=== PATIENT | male | born 1945 | race African-American/Black ===

== ENCOUNTER → 2022-07-05 08:51 | Outpatient (BNV) | payer OTHER, SELFPAY | PROVIDERS: PCP Neurological Surgery; Visit Provider Internal Medicine Medical Oncology | DX: C61 Malignant neoplasm of prostate (principal) | CPT/HCPCS: 99204; 99212; 99213; 99214 ==

== ENCOUNTER → 2022-10-19 10:42 | Outpatient (REF) | payer OTHER, SELFPAY ==
--- NOTE | ~2022-10-19 | NM_ITS ---
EXAMINATION: NM BONE SCAN OF THE WHOLE BODY CLINICAL INFORMATION: Follow up of metastatic prostate cancer with bone metastases. COMPARISON: No existing relevant imaging study available. TECHNIQUE: Multiple gamma scintillation camera images of the whole body were performed 3 hours following the intravenous administration of 37 mCi Tc-99m MDP. The radiotracer was injected through right antecubital superficial vein without complications. FINDINGS: In the head, no suspicious focal lesion. In the thoracic cage and upper extremities, focal linear intense radiotracer activity is present along the lateral border of the right scapula, highly suspicious for metastatic disease. Asymmetric increased radiotracer activity at medial end of the right clavicle is also present, likely represent degenerative arthritic changes and less likely to be metastases given its location. Note is also made of increased radiotracer activities around lateral end of both clavicle likely represent arthritic changes given their location. In the spine, no suspicious abnormality. Mild asymmetric increased radiotracer activity however is present at right posterior costotransverse junction at T11 vertebral body, nonspecific, likely represent degenerative changes. In the pelvis, no suspicious abnormality. In the lower extremities, focal intense abnormal increased radiotracer activity involving the right posterior inferior calcaneus is nonspecific, likely represent posttraumatic change and less likely to be metastatic disease. Radiographic correlation is necessary for further clarification. Increased radiotracer activities around both knees likely represent arthritic changes. No other definite bony abnormalities are noted. The urinary bladder and faint visualization of both kidneys are noted. NM/NM bone scan whole body IMPRESSION: 1. There are no prior studies available at the moment for comparison. The study was read without the benefit of comparison with prior studies. If prior studies become available, following comparison, an addendum will be dictated. 2. Focal linear intense radiotracer activity along the lateral border of the right scapula, highly suspicious for metastatic disease. 2. Asymmetric increased radiotracer activity at medial end of the right clavicle at the level of the sternoclavicular joints is likely degenerative changes and less likely to be metastasis, given its location. 3. Intense focal asymmetric increased radiotracer activity involving the calcaneus likely represent posttraumatic changes and less likely to be metastases. Radiographic correlation is necessary for further clarification. 4. Increased radiotracer activities at lateral end of both clavicles and around both knees likely represent arthritic changes. 5. Asymmetric mildly increased radiotracer activity at T11 vertebral body at the level of the right costotransverse junction likely represent arthritic changes as well. Follow-up [facility]MA PET/CT study may be considered for further full detail evaluation, if clinically appropriate.
== END ==
LOC: HO.NUCMED 10:42
PROVIDERS: PCP Neurological Surgery; Visit Provider Internal Medicine Medical Oncology
DX: C79.51 Secondary malignant neoplasm of bone (principal)
CPT/HCPCS: 78306; A9503

== ENCOUNTER 2022-11-15 08:02 | Outpatient (REF) | payer OTHER, SELFPAY ==
--- NOTE | ~2022-11-15 | CT_ITS ---
EXAMINATION: CT CHEST WITH IV CONTRAST CT ABDOMEN AND PELVIS WITH IV CONTRAST CLINICAL INFORMATION: Follow-up prostate cancer. COMPARISON: Outside CT PET exam 07/14/2022. TECHNIQUE: 5 mm thin axial and reformatted 3 mm thin sagittal and coronal images of chest, abdomen and pelvis were obtained following IV 85 mL Omnipaque 350. DLP: 560 mGy-cm. This CT examination was performed using dose optimization technique as appropriate, variously including the following: Automated exposure control Adjustment of MA and/or KV according to patient size(this includes techniques or standardized protocols for targeted exams where dose is matched to indication/reason for exam; extremities or head. Use of iterative reconstruction techniques. FINDINGS: CHEST: Lungs: The lungs are well-expanded and clear of acute pneumonic consolidation. No pulmonary nodules, mass or ground-glass density seen. Mediastinum: Thyroid lobes are symmetric and normal. The central trachea and bronchi are widely patent. Heart size and the great vessels are normal caliber. No pericardial effusion seen. No abnormal size mediastinal adenopathy. Pleura: There is no pleural effusion, thickening or calcification. Axilla: No abnormal size axillary lymph nodes seen. The chest wall is unremarkable. Osseous Structures: There is mild sclerosis of the right lateral scapula, abdomen and pelvis: ABDOMEN AND PELVIS: Liver, ducts and gallbladder: The liver is homogeneous in density, normal contour and size. No focal lesion or intrahepatic ductal dilatation seen. The gallbladder is contracted and unremarkable. Spleen: Unremarkable. Pancreas: Unremarkable. Adrenal Glands: Unremarkable. Kidneys and Ureters: Both kidneys are slightly lobulated with normal cortical thickening. No radiopaque calculi, enhancing renal mass, or hydronephrosis. Lymphovascular Structures: The abdominal aorta is normal caliber. Small shotty lymph nodes seen in the retroperitoneum. Largest lymph node measures 1.0 cm, axial image 57/3, which corresponds to abnormal PET study from 07/14/2022. GI Tract: There is diffuse colonic diverticulosis with scattered stool and gas without distention or diverticulitis. The small bowel loops are normal caliber. The appendix is normal caliber. Pelvis: The bladder is nondistended. The prostate gland has been removed with postsurgical changes. No abnormal size pelvic or inguinal lymph nodes seen. Osseous Structures: No aggressive lytic or sclerotic process seen. CT/CT abdomen pelvis w IV con IMPRESSION: 1. No acute process seen in the chest, abdomen, or pelvis. 2. There is a sclerotic lesion, right scapula, corresponding to the PET abnormality from 07/14/2022. 3. There are small shotty retroperitoneal lymph nodes with one of the lymph nodes corresponding to the abnormal PET study as described above. 4. A new PET study or a biopsy of these lesions can be performed.
[2022-11-15] MEDS: Barium Sulfate Oral (Berry) 450 ML ORAL.SUSP 900 ML PO (11:18)
[2022-11-15] MEDS: iohexoL 350 MG/ML 100 ML INFUS..BTL IV (11:18)
== END 2022-11-15 08:03 | disposition home or self-care (01) ==
LOC: HO.CT 08:02
PROVIDERS: PCP Neurological Surgery; Visit Provider Internal Medicine Medical Oncology
DX: C61 Malignant neoplasm of prostate (principal); C79.51 Secondary malignant neoplasm of bone
CPT/HCPCS: 71260; 74177; Q9967

== ENCOUNTER 2023-01-19 11:39 | Outpatient (REF) | payer OTHER, SELFPAY ==
--- NOTE | ~2023-01-19 | XR_ITS ---
EXAMINATION: XR SHOULDER, LEFT CLINICAL INFORMATION: LEFT shoulder pain. Mild sclerosis identified in the RIGHT scapula, abdomen and pelvis CT chest November 15 2022 corresponding with PET abnormality from 07/14/2022 COMPARISON: None available. TECHNIQUE: Four views of the left shoulder. FINDINGS: Degenerative changes in the acromioclavicular joint with joint space narrowing and hypertrophic change. Visualization of the medial aspect of the left clavicle is limited due to overlying structures. Moderate hypertrophic change and subtle cystic lucency along the superolateral aspect of the humeral head. Mild spurring along the inferomedial humeral head. Large lucency incompletely imaged in the lower aspect left hemithorax should be evaluated with dedicated images of the chest. XR/XR shoulder LT min 2V IMPRESSION: Advanced degenerative changes in the left shoulder. Additional imaging with CT scan or MRI should be considered for better visualization as these modalities are much more sensitive for detection of fracture or other underlying pathology. Large lucency incompletely imaged in the lower aspect left hemithorax should be evaluated with dedicated images of the chest.
== END 2023-01-19 11:40 | disposition home or self-care (01) ==
LOC: HO.XRAY 11:39
PROVIDERS: Visit Provider Internal Medicine Medical Oncology
DX: M25.512 Pain in left shoulder (principal)
CPT/HCPCS: 73030

== ENCOUNTER 2024-06-11 12:35 | Outpatient (REF) | payer MEDICARE, SELFPAY ==
--- NOTE | ~2024-06-11 | CT_ITS ---
CLINICAL HISTORY: Follow-up on prostate cancer CT chest with contrast Comparison: None Findings: The heart is normal in size. There is no pericardial effusion. The thyroid gland appears normal. There is no mediastinal, hilar, or axillary lymphadenopathy. Several small bilateral pulmonary cysts are present. No suspicious pulmonary nodule is identified. Mild linear atelectasis and/or scarring is seen in the right middle lobe. 5.3 cm sclerotic lesion is seen in the right scapula (best seen on sagittal image 106). IMPRESSION: 1. 5.3 cm sclerotic lesion in the right scapula. Recommend correlation with bone scan. This document has been electronically signed by: Chuyita Pierre on 06/12/2024 08:52:07
--- NOTE | ~2024-06-11 | CT_ITS ---
CLINICAL HISTORY: Follow-up on prostate cancer. CT abdomen and pelvis with contrast Comparison: CT/SR - CT ABDOMEN PELVIS W IV CON - 11/15/22 10:35 EDT Findings: No consolidation or effusion. Subcentimeter hypodensity at the pancreatic head is too small to characterize but unchanged. 1.0 cm simple right renal cyst is present. Additional subcentimeter hypodensities in bilateral kidneys are too small to characterize. The liver, gallbladder, spleen, and bilateral adrenal glands appear within normal limits. Colonic diverticulosis is present. There is no evidence of bowel obstruction. The appendix appears normal. There is no pneumoperitoneum or ascites. The urinary bladder is partially distended. There is no adenopathy by CT size criteria. There has been prior prostatectomy. Gmwc-eg-[id number] degenerative changes are seen in the spine. No acute osseous abnormality is identified. No aggressive lytic or blastic lesion is seen. 1.0 cm subcutaneous nodule is seen in the left lower abdominal wall (axial image 54 of series 3), not significantly changed. IMPRESSION: 1. No abdominopelvic adenopathy by CT size criteria. 2. 1.0 cm subcutaneous nodule in the left lower abdominal wall, not significantly changed since 11/15/2022. This document has been electronically signed by: Chuyita Pierre on 06/12/2024 08:35:13
[2024-06-11] MEDS: Barium Sulfate Oral (Mocha) 450 ML ORAL.SUSP PO ×2 (15:15)
[2024-06-11] MEDS: iohexoL 350 MG/ML 100 ML INFUS..BTL IV (15:15)
--- OUTSIDE RECORDS SUMMARY | 2024-06-11 15:39 | XMS_ITS | Continuity of Care Document ---
Author Organization [facility] [address] [place] [address] Phone [phone] Care Team Providers Care Store Gift Wrap Associate Name Role Phone Padilla Weems Care Team Information Receive r [phone] Problems Active Problems Provider Date Type 2 diabetes mellitus Jana Schmitz M.D. Onset: 12/10/2021 Essential hypertension Esteban Arreola Onset: 12/10/2021 H/O: gout Jana Schmitz M.D. Ons et: 12/10/2021 Carcinoma of prostate Raz Arreola Onset: 12/10/2021 Erectile dysfunction Jossy Arreola Onset: 12/10/2021 Chronic kidney disease Esteban Arreola Onset: 12/10/2021 Diabetic peripheral neuropathy Jana pena M.D. Onset: 12/10/2021 Pure hypercholesterolemia Jana Schmitz M.D. Onset: 12/10/2021 Chronic anemia Jana Schmitz M.D. Ons et: 12/10/2021 Social History Type Date Description Comments Sex Unknown Lives With Spouse Lives With Sons Work Status Retired ETOH Use Rarely consumes alcohol Tobacco Use Start: Unknown Patient has never smoked Smoking Status Reviewed: 08/10/22 Patient has never sm oked Allergies and adverse reactions Description No Known Drug Allergies Medications Active Medications SIG Qnty Indications Ordering Provider Date Amlodipine [id number] Tablets Take 1 Tablet By Mouth Daily Unknown Knbgsebxh9da Tablets Take One Tablet By Mouth Daily AT 9Am 90tabs Jana Schmitz M.D. Uyhaihdrny76hn Tablets Take 1 Tablet By Mouth Daily Unknown Metformin [id number] Tablets take one tablet by mouth twice daily 180tabs Jana Schmitz M.D. Aspirin Ec Low Vogr59lq Tablets DR 1 by mouth every day Jana Schmitz M.D. Folic Ajwg992njl Tablets 1 by mouth every day Jana Schmitz M.D. Multivitamin MenTablets 1 qd Jana Schmitz M.D. Vitamin S4511zr Tablets 1 by mouth every day Jana Schmitz M.D. Xoyoykguael159dh Tablets 1 tab by mouth every morning 90tabs Jana Schmitz M.D. Vitamin Z525sfx (2000 Ut) Capsules 1 by mouth every day Jana Schmitz M.D. Atorvastatin Onpoclv45jf Tablets 1 by mouth every day 90tabs Jana Schmitz M.D. Aygfnldbtnmm97or Tablets Take 1 Tablet By Mouth Daily Leroy Oliva Bzqzcyx797ue Tablets take 1 tablet 3 times daily Unknown Xelihjurgv193qc Capsules take 1 capsule by mouth twice a day Unknown Trazodone RAE36lp Tablets take 1 tablets by mouth every night at bedtime Unknown Vital Signs Date Vital Result Comment 12/28/2023 2:33pm BP Systolic 110 mmHg BP Diastolic 70 mmHg Heart Rate 82 /min Height 74 inches 6'2 Weight 210.50 lb BMI (Body Mass Index) 27.0 kg/m2 Results Test Acquired Date Facility Test Result H/L Range Note Comp. Metabolic Panel (14) 12/28/2023 [facility] Glucose 80 mg/dL 70-99 BUN 20 mg/dL 8-27 Creatinine 1.52 mg/dL High 0.76-1.2 7 eGFR 46 mL/min/1. 73 Low >59 BUN/Creatinine Ratio 13 10-24 Sodium 141 mmol/L 134-144 Chloride 107 mmol/L High 96-106 Carbon Dioxide, Total 19 mmol/L Low 20-29 Calcium 9.3 mg/dL 8.6-10.2 Protein, Total 7.1 g/dL 6.0-8.5 Albumin 4.2 g/dL 3.8-4.8 Globulin, Total 2.9 g/dL 1.5-4.5 Bilirubin, Total 0.4 mg/dL 0.0-1 .2 Alkaline Phosphatase 52 IU/L 44-121 Ast (Sgot) 22 IU/L 0-40 Alt (SGPT) 11 IU/L 0-44 Potassium 4.4 mmol/L 3.5-5.2 Lipid Panel 12/28/2023 [facility] Cholesterol, Total 174 mg/dL 100-199 Triglycerides 80 mg/dL 0-149 HDL Cholesterol 80 mg/dL >39 VLDL Cholestero l Garry 15 mg/dL 5-40 LDL Chol Calc (Nih) 79 mg/dL 0-99 LDL Calc Comment: TNP Hemoglobin A1c 12/28/2023 [facility] Hemoglobin A1c 6.8 % High 4.8-5.6 1 Laboratory test finding 12/28/2023 Inhouse Glucose Fingerstick 65 Laboratory test finding 04/20/2023 Inhouse Hemoglobin A1c 5.9% Laboratory test finding 04/20/2023 Inhouse Glucose Fingerstick 52 Comprehensive Metabolic Panl 08/10/2022 [facility] Glucose 110 mg/dL High (70-99) BUN 21 mg/dL (8-23) Creatinine 1.1 mg/dL (0.7-1.2 ) Sodium 142 mmol/L (133-145 ) Potassium 4.5 mmol/L (3.6-5.2 ) Chloride 106 mmol/L (98-107) Bicarbonate 25 mmol/L (22-29) Anion Gap 11 (4-17) Albumin 4.3 GM/DL (3.4-4.8 ) Calcium 9.7 mg/dL (8.6-10. 5) Bilirubin,Total 0.3 mg/dL (0-1.2 ) Total Protein 7.3 GM/DL (6.2-8.2 ) Ag Ratio 1.4 Ast 26 U/L (0-40) Alk Phos 59 U/L (40-129) Alt 18 U/L (0-41) Estimated GFR Creatinine 66 ML/MIN/1. 73M2 2 Urinary Microalbumin 08/10/2022 [facility] Micro-Albumin 52.3 mg/L High (<20) 3 Malb/Creat Ratio 14.3 MG/GM (0-20) Urine Creat For Micro Albumin 366.6 mg/dL Laboratory test finding 08/10/2022 Inhouse Hemoglobin A1c 6.4% Glucose Fingerstick 140 Lipid Panel 04/15/2022 [facility] Cholesterol, Total 210 mg/dL High (<200) Triglyceride 102 mg/dL (<150) HDL Chol 82 mg/dL (>39) LDL Cholesterol , Calculated 108 mg/dL (0-130) Non HDL Cholesterol (Calc) 128 mg/dL (<160) Laboratory test finding 04/15/2022 Inhouse Glucose Fingerstick 103 Laboratory test finding 12/10/2021 Inhouse Hemoglobin A1c 6.4% Glucose Fingerstick 159 1 Prediabetes: 5.7 - 6 .4 Diabetes: >6.4 Glycemic control for adults with diabetes: <7.0 2 Creatinine based est imated glomerular filtration (eGFR) in adults is calculated using the [employer] recommended 2020 CKD-EPI equation. Estimates GFR from serum creatinine, age and sex. 3 The urine microalbum in test is designed to monitor renal function. When screening for Bence Chavez proteinuria, urine electrophoresis is recommended. Procedures Date Code Description Status 05/16/2024 NSHOWOFF No Show Office Visit Complet ed 12/28/2023 33393 Collection Of Venous Blood B y Venipuncture Completed 08/10/2022 63657 Collection Of Venous Blood B y Venipuncture Completed 04/15/2022 35749 Collection Of Venous Blood B y Venipuncture Completed Medical Devices Description No Information Available Encounters Type Date Location Provider Dx Diagnosis Office Visit 12/28/2023 2:30p Main Office Jana Schmitz M.D. E11.42 Type 2 diabetes mellitus with diabetic polyneuropathy I10 Essential (primary) hypertension E78.00 Pure hypercholestero lemia, unspecified Assessments Date Code Description Provider 12/28/2023 E11.42 Type 2 diabetes mellitus with diabetic polyneuropathy Jana Schmitz M.D. 12/28/2023 I10 Essential (primary) hyperten jackieivonne Schmitz M.D. 12/28/2023 E78.00 Pure hypercholesterolemia, u nspecified Jana Schmitz M.D. Plan of Treatment Future Appointment(s):* 09/12/2024 2:45 pm - Jana Schmitz M.D. at Main Office 08/10/2022 - Jana Schmitz M.D.* E11.42 Type 2 diabetes mellitus with diabetic polyneuropathy * I10 Essential (primary) hypertension Functional Status Description No Information Available Mental Status Description No Information Available Referrals Description No Information Available
--- OUTSIDE RECORDS SUMMARY | 2024-06-11 15:39 | XMS_ITS | Clinical Summary ---
Author Organization 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 Azul Diverticulosis 09/25/2009 DX:Diverticulosi s Gout 09/25/2015 DX:Gout Hyperlipidemia 05/01/2017 DX:Hyperlipidemi a Hypertension 11/14/2017 DX:Hypertension ED (erectile dysfunction) 12/15/2010 DX:ED (erectile dysfunction) Murmur 03/30/2012 DX:Murmur Vitamin D deficiency 05/14/2012 DX:Vitamin D deficiency Type 2 diabetes mellitus wit h neurological manifestations (CMS/HCC) 11/14/2017 DX:Type 2 diabet es mellitus with neurological manifestations (HCC); COMMENT: Comments: Eye Exam - 11/15/10 Dr. Garduno Exam - 10/29/09 Dr. Malin Insomnia 06/18/2013 DX:Insomnia History of stroke 04/25/2018 DX:History of stroke; COMMENT: Head CT 05/31/10 showed old CVA left hemisphere History of prostate cancer 04/25/2018 DX:Hi story of prostate cancer; COMMENT: s/p TURP w/ pelvic lymph node resection 1998, radiation 2004, increased PSA June 2010 sched for bilat orchiectomy. Microalbuminuria 04/25/2018 DX:Microalbumin uria Type 2 diabetes mellitus wit h vascular disease (CMS/HCC) 04/25/2018 DX:Type 2 diabetes mellitus with vascular disease (HCC) Type 2 diabetes mellitus wit h renal manifestations (CMS/HCC) 11/14/2017 DX:Type 2 diabetes mellitus with renal manifestations (HCC) Family History Medical History Relation Name Comments Diabetes Mother HTN Diabetes Sister 1 Diabetes Sister 2 Diabetes Sister 3 Relation Name Status Comments Brother 1 Brother 2 Brother 3 Alive Brother 4 Alive Father Maternal Grandfather Maternal Grandmother Mother Paternal Grandfather Paternal Grandmother Sister 1 Sister 2 Sister 3 Sister 4 Sister 5 Alive Social History Tobacco Use Types Packs/Day Years Used Date Smoking Tobacco: Never Smokeless Tobacco: Never Alcohol Use Standard Drinks/Week Comments Yes 3 (1 standard drink = 0.6 oz pur e alcohol) Sex and Gender Information Value Date Recorded Sex Assigned at Not on file Legal Sex Male 10:54 AM EST Gender Identity Not on file Sexual Orientation Not on file Obstetrics History Plan of Treatment Health Maintenance Due Date Last Done Comments Diabetes: Annual Foot Exam 1954 Diabetes: Annual Retina Eye Exam 1955 RSV Immunization Patients 60+ Years Old (1 - 1-dose 75+ series) 2019 Colorectal Cancer Screening: Stool Based Tests (FOBT/FIT) 03/08/2022 Falls Risk Assessment 03/08/2022 Social Influencers of Health Screening 03/08/2022 Diabetes: Annual Urine Albumin-Creatinine Ratio (uACR) 06/07/2023 06/07/2022 COVID-19 Vaccine ( season) 2023 02/24/2022, 07/24/2021, 01/30/2021, Additional history exists Influenza Vaccine (#1) 2023 , 02/24/2022, 12/17/2019, Additional history exists DTaP,Tdap,and Td Vaccines (3 - Td or Tdap) 01/18/2024 01/17/2014, 06/22/2009 Diabetes: Blood Sugar Control Test (HGBA1C) 03/09/2024 09/08/2023 Depression Screening 05/31/2024 05/31/2023 Diabetes: Annual GFR (Glomerular Filtration Rate) 09/07/2024 09/08/2023 Hypertension/CHF/CAD Annual BMP Blood Test 09/07/2024 09/08/2023 Cholesterol Screening (Lipid Panel) 09/07/2028 09/08/2023, 09/08/2023, 08/29/2022 Pneumococcal Vaccine: 50+ Years Completed 08/29/2022, 05/15/2018, 04/07/2015, Additional history exists Zoster Vaccines Completed 08/29/2022, 05/12, 12/21/2013 HIB Vaccines Aged Out No longer eligi ble based on patient's age to complete this topic HPV Vaccines Aged Out No longer eligi ble based on patient's age to complete this topic Hepatitis A Vaccines Aged Out No long er eligible based on patient's age to complete this topic Hepatitis B Vaccines Aged Out No long er eligible based on patient's age to complete this topic IPV Vaccines Aged Out No longer eligi ble based on patient's age to complete this topic MMR Vaccines Aged Out No longer eligi ble based on patient's age to complete this topic Meningococcal ACWY Vaccine Aged Out N o longer eligible based on patient's age to complete this topic Meningococcal B Vacine Aged Out No lo nger eligible based on patient's age to complete this topic RSV Immunization Patients Under 20 months Aged Out No longer eligible based on patient's age to complete this topic Varicella Vaccines Aged Out No longer eligible based on patient's age to complete this topic Insurance MEDICAID - [place] Care Teams Sorting Machine Operator Relationship Specialty Start Date End Date Ana Laura Wood NP [facility] [address] [place] [address] PCP - General Cardiology 08/08/21
== END 2024-06-11 12:36 | disposition home or self-care (01) ==
LOC: HO.CT 12:35
PROVIDERS: PCP Neurological Surgery; Visit Provider Internal Medicine Medical Oncology
DX: C79.51 Secondary malignant neoplasm of bone (principal)
CPT/HCPCS: 71260; 74177; Q9967

== ENCOUNTER → 2024-06-11 12:37 | Outpatient (BNV) | payer MEDICARE, SELFPAY | PROVIDERS: PCP Neurological Surgery; Visit Provider Radiology Vascular & Interventional Radiology | DX: C61 Malignant neoplasm of prostate (principal); C79.51 Secondary malignant neoplasm of bone; M89.8X1 Other specified disorders of bone, shoulder; R19.04 Left lower quadrant abdominal swelling, mass and lump | CPT/HCPCS: 71260; 74177 ==

== ENCOUNTER → 2024-12-26 10:06 | Outpatient (REF) | payer MEDICARE, SELFPAY ==
--- NOTE | ~2024-12-26 | NM_ITS ---
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 TECHNIQUE: A total body bone scan was performed following intravenous administration of 21 mCi technetium 99m-MDP. COMPARISON: Comparison is made with the prior examination dated 10/19/2022. FINDINGS: The previously seen focus of abnormal increased uptake involving the right scapula is less intense on the current study. Again seen is activity at the medial aspect of the right clavicle which may be degenerative in nature. Again seen is symmetric activity at the shoulders which is likely degenerative in nature. The remainder the visualized osseous structures demonstrate a normal distribution of activity. There is normal bilateral renal uptake. There are no foci of abnormal increased uptake are identified. NM/NM bone scan whole body IMPRESSION: The previously seen focus of abnormal activity involving the right scapula is less intense. No new abnormality is identified. Electronically signed by: Ramakrishna Zhang MD 12/26/2024 02:39 PM EDT
--- OUTSIDE RECORDS SUMMARY | 2024-12-26 11:56 | XMS_ITS | Clinical Summary ---
Author Organization [facility] Address [address] [place] [address] Care Team Providers Care Hand Splitter Name Role Phone Padilla Weems Primary Care Provider [phone] Source Comments PLEASE NOTE, if this patient is a minor, it may be UNLAWFUL to discuss sensitive information that is contained in these records (such as FAMILY PLANNING, MENTAL HEALTH or SUBSTANCE ABUSE) with the minor patient's parent or other person without the patient's specific authorization.[facility] Allergies No known active allergies Medications caneIndications: Neuropathy See Instructions, # 1 each, Maintenance, 1 CANE TO BE USED FOR ASSISTANCE WHILE WALKING NEEDED, 04/04/20 13:59:00 EST, Supply 04/04/20 20 Active mv-mn/folic acid/lutein/hrb1 78 (BIANCA MULTIVITAMIN FOR MEN ORAL)Indications :Chronic kidney disease, unspecified CKD stage,Routine adult health maintenance Take by mouth Acti ve calcium carbonate (OS-SHANTELL) 500 mg calcium (1,250 mg) tabletIndication s:Diabetes mellitus type 2 in obese,Gout involving toe, unspecified cause, unspecified chronicity, unspecified laterality Take 1 Tablet by mouth once daily 60 Tablet 2 02/25/20 22 Active glyBURIDE (DIABETA) 5 mg tabletIndication s:Diabetes mellitus type 2 in obese Take 1 Tablet by mouth once daily with breakfast 30 Tablet 2 02/25/20 22 Active lancetsIndicatio ns:Diabetes mellitus type 2 in obese Use for BID blood sugar checks. 30 Each 2 02/25/20 22 Active lancets (ONETOUCH DELICA LANCETS) 33 gaugeIndications :Diabetes mellitus type 2 in obese Check blood sugar bid 200 Each 5 03/08/20 22 Active bicalutamide (CASODEX) 50 mg tablet Take 1 Tablet by mouth once daily 08/30/19 23 Active blood pressure monitorIndicatio ns:Essential hypertension Goal check once daily, for HTN goal <140/90 1 Kit 03/08/20 23 Active zolpidem (AMBIEN) 5 mg tabletIndication s:Primary insomnia TAKE 1 TABLET BY MOUTH EVERY NIGHT AT BEDTIME NEEDED FOR SLEEP 30 Tablet 2 03/20/20 23 Active pregabalin (LYRICA) 150 mg capsuleIndicatio ns:Type 2 diabetes mellitus with diabetic autonomic neuropathy, without long-term current use of insulin ([facility]) TAKE ONE CAPSULE BY MOUTH TWICE DAILY 60 Capsule 04/11/19 24 Active glipiZIDE (GLUCOTROL) 5 mg tabletIndication s:Type 2 diabetes mellitus with diabetic autonomic neuropathy, without long-term current use of insulin ([facility]) Take 1 Tablet by mouth daily. 60 Tablet 2 12/04/19 24 Active metFORMIN (GLUCOPHAGE) 1,000 mg tabletIndication s:Type 2 diabetes mellitus with diabetic autonomic neuropathy, without long-term current use of insulin ([facility]) Take 1 Tablet by mouth once daily with breakfast 60 Tablet 1 12/04/19 24 Active allopurinoL (ZYLOPRIM) 300 mg tabletIndication s:Gout involving toe, unspecified cause, unspecified chronicity, unspecified laterality TAKE ONE TABLET BY MOUTH DAILY AT 9AM 90 Tablet 11 01/01/20 24 Active amLODIPine (NORVASC) 5 mg tabletIndication s:Essential hypertension TAKE ONE TABLET BY MOUTH DAILY 90 Tablet 11 10/02/19 25 Active lisinopriL 40 mg tabletIndication s:Essential hypertension TAKE ONE TABLET BY MOUTH DAILY 90 Tablet 10/02/19 25 Active traZODone (DESYREL) 50 mg tablet TAKE ONE TABLET BY MOUTH EVERY NIGHT AT BEDTIME 30 Tablet 11/01/19 25 Active gabapentin (NEURONTIN) 300 mg capsuleIndicatio ns:Diabetic peripheral neuropathy ([facility]) TAKE ONE CAPSULE BY MOUTH THREE TIMES DAILY 90 Capsule 11 11/01/19 25 Active atorvastatin (LIPITOR) 40 mg tabletIndication s:Essential hypertension,Typ e 2 diabetes mellitus with diabetic autonomic neuropathy, without long-term current use of insulin ([facility]) TAKE ONE TABLET BY MOUTH DAILY 90 Tablet 11 12/06/19 25 Active atorvastatin (LIPITOR) 40 mg tabletIndication s:Essential hypertension,Typ e 2 diabetes mellitus with diabetic autonomic neuropathy, without long-term current use of insulin ([facility]) Take 1 Tablet by mouth once daily 90 Tablet 3 12/04/19 24 025 Discontinued Active Problems Problem Noted Date Diagnosed Date Gout involving toe 02/24/2022 Carcinoma of prostate ([facility]) 12/10/2021 Chronic anemia 12/10/2021 Chronic kidney disease 12/10/2021 Diabetic peripheral neuropathy ([facility]) 0 12/10/2021 Erectile dysfunction 12/10/2021 H/O: gout 12/10/2021 Pure hypercholesterolemia 12/10/2021 Diabetes mellitus type 2 in obese 04/29/2016 Overview (04/29/2016): Followed by Endocrine asso - [phone] Essential hypertension 04/29/2016 Personal history of malignant neoplasm of prosta te 04/29/2016 Overview (08/29/2022): Followed by [facility] urologist - [phone] Oliva at [facility] for oncology Immunizations Immunization Administration Dates Next Due Flu, High Dose, 65y+, Fluzone High Dose 03/08/20,02/24/2022,12/17/2019 Influenza (FLUZONE), high-do se, trivalent, PF 07/30/2019,01/30/2017,01/12/2016 MODERNA COVID-19 VACCINE BIV ALENT, BLUE CAP, 6M+ 02/24/2022 PFIZER COVID VACCINE, PURPLE CAP, 12+ 01/30/2021 ,06/08/2020,05/19/2020 PNEUMOCOCCAL CONJUGATE PCV 20 (Prevnar 20) 08/29 PNEUMOCOCCAL POLYSACCHARIDE PPV23 (Pneumovax 23) 05/15/2018 Pfizer COVID vaccine, COMIRN ATY, tai cap, 12+ 07/24/2021 TDAP 01/17/2014 ZOSTER VACCINE, RECOMBINANT (SHINGRIX) 3,06/06/2022 Zoster, Live Vaccine (Zostavax) 12/21/2013 Social History Tobacco Use Types Packs/Day Years Used Date Smoking Tobacco: Never Smokeless Tobacco: Never Tobacco Cessation:Counseling Given: Not Answered Alcohol Use Standard Drinks/Week Comments Yes 0 (1 standard drink = 0.6 oz pur e alcohol) weekends Social Connections Answer Date Recorded Connectedness 1 05/31/2023 Financial Resource Strain Answer Date R ecorded Financial Resource Strain 1 2023 Stress Answer Date Recorded Stress 1 05/31/2023 Physical Activity Answer Date Recorded Physical Activity 0 12/02/2018 Food Insecurity Answer Date Recorded Food 1 05/31/2023 Transportation Needs Answer Date Record ed Transportation 1 05/31/2023 Housing Stability Answer Date Recorded Housing 1 05/31/2023 Safety and Environment Answer Date Dane rded Safety 1 05/31/2023 Utilities Answer Date Recorded Utilities 1 05/31/2023 Employment Answer Date Recorded Stress 0 06/07/2022 Sex and Gender Information Value Date Recorded Sex Assigned at Male 02/24/2022 8:05 AM PST Legal Sex Male 5:58 AM PST Gender Identity Male 02/24/2022 8:05 AM PST Sexual Orientation Straight 02/24/2022 8: 05 AM PST Last Filed Vital Signs Vital Sign Reading Time Taken Comments Blood Pressure 187/79 02/09/2024 1:39 PM EDT Pulse 68 02/09/2024 1:39 PM EDT Temperature 36.4 C (97.5 F) 12/04/2023 2:41 PM EDT Respiratory Rate 20 12/04/2023 2:41 PM EDT Oxygen Saturation 97% 12/04/2023 2:41 PM EDT Inhaled Oxygen Concentration - - Weight 96.6 kg (213 lb) 12/04/2023 2:41 PM EDT Height 188 cm (6' 2 ) 12/04/2023 2:41 PM EDT Body Mass Index 27.35 12/04/2023 2:41 PM EDT Plan of Treatment Health Maintenance Due Date Last Done Comments Retinopathy Screening 1958 Medicare Annual Wellness Visit 1963 Imm-RSV (adult) (1 - 1-dose 75+ series) 2019 Falls Prevention 02/24/2023 02/24/2022, 02/24/2022 Diabetes Foot Exam 06/06/2023 06/06/2022, 02/24/2022 Urine Albumin Creatinine Rat io Screening 06/07/2023 06/07/2022 Imm-DTaP/Tdap/Td (2 - Td or Tdap) 01/18/2024 014 Alcohol and Drug Screen 04/10/2024 05/31/19 24, 06/06/2022, 02/24/2022, Additional history exists Depression Annual Screen 04/10/2024 05/31/2023 [id number] ( season) 2024 02/24/2022, 07/24/2021, 01/30/2021, Additional history exists Imm-Influenza (#1) 2024 03/08/2023, 1 04/26/2021, 12/17/2019, Additional history exists Hemoglobin A1c 01/01/2025 07/01/2024, 05/3 04/2023, 05/31/2023, Additional history exists Dental Prophy 01/24/2025 07/23/2024, 12/13/2023 Lipid Screening 07/01/2025 07/01/2024, 0504/2023, 08/29/2022, Additional history exists Serum Creatinine 07/01/2025 07/01/2024, , 08/29/2022, Additional history exists Tobacco Screening 07/23/2025 07/23/2024, 02/24/2022 Dental BW 07/25/2025 07/23/2024, 12/13/2023 Dental Examination 07/25/2025 07/23/2024, 12/13/2023 Dental Perio Charting 07/25/2025 07/23/2024 Dental FMX/Pano 12/14/2028 12/13/2023 Imm-Pneumococcal 50+ Completed 08/29/2022, 05/15/19 Imm-Zoster, Recombinant Completed 08/30/19 23, 06/06/2022, 12/21/2013 Procedures Procedure Name Priority Date/Time Associated Diagnosis Comments COMP PERIODONTAL EVALUATION - NEW/EST PATIENT Routine 07/23/2024 1:00 PM EDT Encounter for dental examination and cleaning with abnormal findings Stage 2 grade B generalized periodontitis per AAP/EFP 2017 classification BITEWINGS - FOUR RADIOGRAPHIC IMAGES Routine 07/23/2024 1:00 PM EDT Encounter for dental examination and cleaning with abnormal findings Stage 2 grade B generalized periodontitis per AAP/EFP 2017 classification PROPHYLAXIS - ADULT Routine 07/23/2024 1 :00 PM EDT Encounter for dental examination and cleaning with abnormal findings Stage 2 grade B generalized periodontitis per AAP/EFP 2017 classification PERIODIC ORAL EVALUATION ESTABLISHED PATIENT Routine 07/23/2024 1:00 PM EDT Encounter for dental examination and cleaning with abnormal findings Stage 2 grade B generalized periodontitis per AAP/EFP 2017 classification COMPREHENSIVE METABOLIC PANEL Routine 07/01/2024 9:38 AM EDT Essential hypertension Type 2 diabetes mellitus with diabetic autonomic neuropathy, without long-term current use of insulin ([facility]) LIPID PANEL Routine 07/01/2024 9:38 AM EDT Essential hypertension Type 2 diabetes mellitus with diabetic autonomic neuropathy, without long-term current use of insulin ([facility]) HGBA1C W/MPG Routine 07/01/2024 9:38 AM EDT Essential hypertension Type 2 diabetes mellitus with diabetic autonomic neuropathy, without long-term current use of insulin ([facility]) INTRAORAL - COMP SERIES OF RADIOGRAPHIC IMAGES Routine 12/13/2023 9:00 AM EDT Encounter for dental examination [facility] MICROALBUMIN URINE (POCT) Routine 06/07/2022 3:49 PM EST Diabetes mellitus type 2 in obese from Last 3 Months or Most Recently Relevant to Health Maintenance Results * (ABNORMAL) HGBA1C W/MPG (07/01/2024 9:38 AM EDT) HEMOGLOBIN A1C 6.0(H) <5.7 % of total Hgb [employer] Comment: For someone without known diabetes, a hemoglobin A1c value between 5.7% and 6.4% is consistent with prediabetes and should be confirmed with a follow-up test. For someone with known diabetes, a value <7% indicates that their diabetes is well controlled. A1c targets should be individualized based on duration of diabetes, age, comorbid conditions, and other considerations. This assay result is consistent with an increased risk of diabetes. Currently, no consensus exists regarding use of hemoglobin A1c for diagnosis of diabetes for children. MEAN PLASMA GLUCOSE 136 mg/dL (calc) [employer] [facility] Blood Blood / Unknown 07/01/2024 9 :38 AM EDT 07/01/2024 9:39 AM EDT us Padilla [facility] - BLOOD DRAW Edited Result - Final Performing Organization Address City/[facility] Co de Phone Number [employer] [facility] [address] [address], [employer] [facility] [address] [place] [address] * LIPID PANEL (07/01/2024 9:38 AM EDT) [facility] Signature CHOLESTEROL, TOTAL 156 <200 mg/dL [employer] [facility] HDL CHOLESTEROL 63 > OR = 40 mg/dL [employer] [facility] TRIGLYCERIDES 94 <150 mg/dL [employer] [facility] LDL-CHOLESTEROL 75 99 mg/dL (calc) [employer] [facility] Comment: Reference range: <100 Desirable range <100 mg/dL for primary prevention; <70 mg/dL for patients with CHD or diabetic patients with > or = 2 CHD risk factors. LDL-C is now calculated using the Edwin-Carolyn calculation, which is a validated novel method providing better accuracy than the Friedewald equation in the estimation of LDL-C. Edwin LY et al. ILAN. 2013;310(19): 0926-7771 (http://education.[employer]/faq/AJA817) CHOL/HDLC RATIO 2.5 <5.0 (calc) [employer] [facility] NON-HDL CHOLESTEROL 93 <130 mg/dL (calc) [employer] Comment: For patients with diabetes plus 1 major ASCVD risk factor, treating to a non-HDL-C goal of <100 mg/dL (LDL-C of <70 mg/dL) is considered a therapeutic option. Blood Blood / Unknown 07/01/2024 9 :38 AM EDT 07/01/2024 9:39 AM EDT us Padilla PR[facility] - BLOOD DRAW Final Result Performing Organization Address [facility]/ZIP Co de Phone Number [employer] [facility] [address] [address], [employer] [address] [address] * (ABNORMAL) COMPREHENSIVE METABOLIC PANEL (07/01/2024 9:38 AM EDT) GLUCOSE 95 65 - 99 mg/dL [employer] [facility] Comment: Fasting reference interval UREA NITROGEN (BUN) 22 7 - 25 mg/dL [employer] [facility] CREATININE (blood) 1.30(H) 0.70 - 1.22 mg/dL [employer] [facility] EGFR 56(L) > OR = 60 mL/min/1. 73m2 [employer] [facility] BUN/CREATININE RATIO 17 6 - 22 (calc) [employer] [facility] SODIUM 140 135 - 146 mmol/L [employer] [facility] POTASSIUM 4.7 3.5 - 5.3 mmol/L [employer] [facility] CHLORIDE 106 98 - 110 mmol/L [employer] [facility] CARBON DIOXIDE 24 20 - 32 mmol/L [employer] [facility] CALCIUM 9.1 8.6 - 10.3 mg/dL [employer] [facility] PROTEIN, TOTAL 6.9 6.1 - 8.1 g/dL [employer] [facility] ALBUMIN 4.1 3.6 - 5.1 g/dL [employer] [facility] GLOBULIN 2.8 1.9 - 3.7 g/dL (calc) [employer] [facility] ALBUMIN/GLOBULI N RATIO 1.5 1.0 - 2.5 (calc) [employer] [facility] BILIRUBIN, TOTAL 0.5 0.2 - 1.2 mg/dL [employer] [facility] ALKALINE PHOSPHATASE 32(L) 35 - 144 U/L [employer] [facility] AST 16 10 - 35 U/L [employer] [facility] ALT 10 9 - 46 U/L [employer] [facility] Blood Blood / Unknown 07/01/2024 9 :38 AM EDT 07/01/2024 9:39 AM EDT us Padilla PR[facility] - BLOOD DRAW Edited Result - Final Performing Organization Address City/[facility]/ZIP Co de Phone Number [employer] [facility] [address] [address], [employer] [facility] [address] [place] [address] * (ABNORMAL) MICROALBUMIN URINE (POCT) (06/07/2022 3:49 PM EST) ALBUMIN 150 0 - 300 mg/L [facility] POCT URCREAT 300 10 - 300 mg/dL [facility] PO[facility] Comment: [id number] [id number] ALBUMIN/CREATI NINE RATIO 30-300 29 - 300 mg/g [facility] POCT Urine Urine specimen / Unknown 06/07/2022 3:49 PM EST us Padilla [facility] URINE AMBULATORY Final Res ult [facility] POCT from Last 3 Months or Most Recently Relevant to Health Maintenance Insurance HEALTH SAFETY NET [employer] MEDICARE HEALTH SAFETY NET DENTAL Care Teams Hand Splitter Relationship Specialty Start Date End Date Padilla Weems PA [address] [place] [address] PCP - General Internal Medicine 04/29/16
--- OUTSIDE RECORDS SUMMARY | 2024-12-26 11:57 | XMS_ITS | Clinical Summary ---
Author Organization [facility] Address [address] [place] [address] Phone Care Team Providers Care Survey Party Chief Name Role Phone WoodAna Larua mackey ARNULFO Primary Care Provider [phone] Surgical History Surgery Date Site/Laterality Comments TURP [...] 2 diabetes mellitus wit h neurological manifestations (CMS/HCC V24, CMS/HCC V28) 11/14/2017 DX:Type 2 diabetes mellitus with neurological manifestations (HCC); COMMENT: Comments: Eye Exam - 11/15/10 Dr. RodriguezFoot Exam - 10/29/09 Dr. Malin Insomnia 06/18/2013 [...] 2 diabetes mellitus wit h vascular disease (CMS/HCC V24, CMS/HCC V28) 04/25/2018 DX:Type 2 diabetes mellitus with vascular disease (HCC) Type 2 diabetes mellitus wit h renal manifestations ([facility] V24, [facility] V28) 11/14/2017 DX:Type 2 diabetes mellitus with renal [...] Annual Retina Eye Exam 1955 RSV Immunization Adult Patients (1 - 1-dose 75+ series) 2019 Colorectal Cancer Screening: Stool Based Tests (FOBT/FIT) 03/08/2022 Falls Risk Assessment 03/08/2022 Social Influencers of Health Screening 03/08/2022 Diabetes: Annual Urine Albumin-Creatinine Ratio (uACR) 06/07/2023 06/07/2022 DTaP,Tdap,and Td Vaccines (3 - Td or Tdap) 01/18/2024 01/17/2014, 06/22/2009 Depression Screening 04/10/2024 COVID-19 Vaccine ( season) 2024 02/24/2022, 07/24/2021, 01/30/2021, Additional history exists Influenza Vaccine (#1) 2024 , 02/24/2022, 12/17/2019, Additional history exists Diabetes: Blood Sugar Control Test (HGBA1C) 01/01/2025 07/01/2024, 09/08/2023 Diabetes: Annual GFR (Glomerular Filtration Rate) 07/01/2025 07/01/2024, 09/08/2023 Hypertension/CHF/CAD Annual BMP Blood Test 07/01/2025 07/01/2024, 09/08/2023 Cholesterol Screening (Lipid Panel) 07/01/2029 07/01/2024, 07/01/2024, 09/08/2023, Additional history exists Pneumococcal Vaccine: 50+ Years Completed 08/29/2022, 05/15/2018, [...] age to complete this topic Meningococcal B Vaccine Aged Out No l onger eligible based on patient's age to complete this topic RSV Immunization Patients Under 20 months Aged Out No longer eligible based on patient's age to complete this topic Varicella Vaccines Aged Out No longer eligible based on patient's age to complete this topic Insurance [place]ICA[place] - [place] Care Teams Survey Party Chief Relationship Specialty Start Date End Date Ana Laura Wood NP [facility] [address] [place] [address], [phone] [place] [address] PCP - General Cardiology 08/08/21
--- OUTSIDE RECORDS SUMMARY | 2024-12-26 11:57 | XMS_ITS ---
Author Name [facility] Organization Unknown Care Team Organization Name Specialty Phone Email Start Date End Da mely [facility] Keke Whitaker Primary [facility] 02/15/2022 4
== END ==
LOC: HO.NUCMED 10:06
PROVIDERS: Visit Provider Internal Medicine Medical Oncology
DX: C61 Malignant neoplasm of prostate (principal); C79.51 Secondary malignant neoplasm of bone
CPT/HCPCS: 78306; A9503

== ENCOUNTER → 2024-12-26 10:11 | Outpatient (BNV) | payer MEDICARE, SELFPAY | PROVIDERS: Visit Provider Radiology Diagnostic Radiology | DX: C79.51 Secondary malignant neoplasm of bone (principal) | CPT/HCPCS: 78306 ==